=== PATIENT | male | born 1955 | race Caucasian/White ===

== ENCOUNTER 2017-07-09 09:49 | Inpatient (IN) | payer MEDICARE, MEDICAID ==
[2017-07-09] MEDS ORDERED: 0.9 % SODIUM CHLORIDE 10 ML DISP.SYRIN. IV (10:15)
[2017-07-09] MEDS: IV NORMAL SALINE 1000ML BAG 1,000 ML IV ×3 (10:16→23:23)
[2017-07-09] MEDS: ASPIRIN CHEWABLE 81 MG TABLET. PO (10:18)
[2017-07-09 10:32] LABS: POC GLUCOSE 114 mg/dL (70-99)
[2017-07-09 10:49] LABS: ADD MAN DIFF? NO
[2017-07-09 11:05] LABS: BASO # 0.1 x10^3/uL (0.0-0.2); BASO % 1 % (0-3); EOS # 0.4 x10^3/uL (0.0-0.7); EOS % 5 % (0-3); HEMATOCRIT 48.2 % (39.0-53.0); HEMOGLOBIN 17.1 g/dL (13.0-17.5); LYMPH # 3.1 x10^3/uL (1.0-4.8); LYMPH % 37 % (24-48); MEAN CORPUSCULAR HEMOGLOBIN 35 pg (25-35); MEAN CORPUSCULAR HGB CONC 35 g/dL (31-37); MEAN CORPUSCULAR VOLUME 98 fL (79-100); MONO # 0.8 x10^3/uL (0.0-1.1); MONO % 10 % (0-9); NEUT % 48 % (31-73); PLATELET COUNT 271 x10^3/uL (140-400); RED BLOOD COUNT 4.91 x10^6/uL (4.30-5.70); RED CELL DISTRIBUTION WIDTH 12.6 % (11.5-14.5); WHITE BLOOD COUNT 8.4 x10^3/uL (4.0-11.0)
[2017-07-09 11:06] LABS: ANION GAP 10 (6-14); BLOOD UREA NITROGEN 16 mg/dL (8-26); CALCIUM 8.8 mg/dL (8.5-10.1); CARBON DIOXIDE 27 mmol/L (21-32); CHLORIDE 104 mmol/L (98-107); CREATININE 1.4 mg/dL (0.7-1.3); GFR 51.5; GLUCOSE 129 mg/dL (70-99); POTASSIUM 4.3 mmol/L (3.5-5.1); SODIUM 141 mmol/L (136-145)
[2017-07-09 11:12] LABS: D-DIMER 0.38 ug/mlFEU (0.00-0.50)
[2017-07-09 11:14] LABS: ETHANOL 11 mg/dL (0-10)
[2017-07-09 11:14] LABS: ALBUMIN 3.6 g/dL (3.4-5.0); ALK PHOS 75 U/L (46-116); ALT (SGPT) 207 U/L (16-63); AST (SGOT) 86 U/L (15-37); DIRECT BILIRUBIN 0.1 mg/dL (0.0-0.2); LIPASE 136 U/L (73-393); MAGNESIUM 2.3 mg/dL (1.8-2.4); TOTAL BILIRUBIN 0.3 mg/dL (0.2-1.0); TOTAL PROTEIN 7.8 g/dL (6.4-8.2)
[2017-07-09 11:19] LABS: TROPONINI < 0.017 ng/mL (0.000-0.055)
[2017-07-09 11:22] LABS: NT-PRO BNP 167 pg/mL (0-124)
[2017-07-09 11:22] LABS: CKMB MASS 1.2 ng/mL (0.0-3.6); CREATINE KINASE 53 U/L (39-308)
[2017-07-09 11:23] LABS: THYROID STIM HORMONE (TSH) 8.633 uIU/mL (0.358-3.74)
[2017-07-09 13:21] LABS: BILIRUBIN,URINE SMALL (NEG); CLARITY,URINE CLOUDY; COLOR,URINE AMBER; GLUCOSE,URINE NEGATIVE (NEG); NITRITE,URINE NEGATIVE (NEG); PROTEIN,URINE NEGATIVE (NEG-TRACE); UROBILINOGEN,URINE 0.2 mg/dL (0.2 mg/dL)
[2017-07-09 13:25] LABS: BARBITURATES NEG (NEG); BENZODIAZEPINES NEG (NEG); CANNABINOIDS POS (NEG); COCAINE NEG (NEG); METHADONE NEG (NEG); OPIATES NEG (NEG); PHENCYCLIDINE NEG (NEG)
[2017-07-09 13:26] LABS: AMPHETAMINE/METHAMPHETAMINE NEG (NEG); ETHANOL, URINE NEG (NEG)
[2017-07-09 13:27] LABS: BACTERIA,URINE FEW /HPF (0-FEW); HYALINE CASTS, URINE MANY /HPF; RBC,URINE 0 /HPF (0-2); SQUAMOUS EPITHELIAL CELL,UR OCC /LPF
[2017-07-09] MEDS ORDERED: fentaNYL PF VIAL 100 MCG/2 ML VIAL IV (14:30)
[2017-07-09] MEDS ORDERED: ONDANSETRON PF 4 MG/2 ML VIAL. IV (14:30)
[2017-07-09 18:53] LABS: TROPONINI < 0.017 ng/mL (0.000-0.055)
[2017-07-09 20:35] LABS: TROPONINI < 0.017 ng/mL (0.000-0.055)
[2017-07-10] MEDS: IV NORMAL SALINE 1000ML BAG 1,000 ML IV (06:48)
[2017-07-10] MEDS ORDERED: METOPROLOL SUCC 24HR ER 50 MG TAB.ER.24H. PO (10:00)
[2017-07-10 10:01] LABS: FREE T4 1.07 ng/dL (0.76-1.46)
[2017-07-10] MEDS: CLOPIDOGREL BISULFATE 75 MG TABLET PO (10:30)
[2017-07-10] MEDS: ASPIRIN ENTERIC COATED 81 MG TABLET.DR. PO (10:30)
[2017-07-10] MEDS: AMIODARONE HCL 200 MG TABLET. PO (10:30)
[2017-07-10] MEDS: LISINOPRIL 5 MG TABLET. PO (10:30)
[2017-07-10] MEDS ORDERED: SIMVASTATIN 10 MG TABLET PO (21:00)
== END 2017-07-10 18:22 | disposition home or self-care (01) | DRG 641 ==
LOC: ER 09:49 → 6 SOUTH 15:33
PROVIDERS: Internal Medicine Cardiovascular Disease
DX: E86.0 Dehydration (principal); I95.9 Hypotension, unspecified; E78.5 Hyperlipidemia, unspecified; F10.10 Alcohol abuse, uncomplicated; Y90.0 Blood alcohol level of less than 20 mg/100 ml; F17.210 Nicotine dependence, cigarettes, uncomplicated; I25.10 Atherosclerotic heart disease of native coronary artery without angina pectoris; R73.9 Hyperglycemia, unspecified; I73.9 Peripheral vascular disease, unspecified; Z79.82 Long term (current) use of aspirin; Z82.49 Family history of ischemic heart disease and other diseases of the circulatory system; Z95.5 Presence of coronary angioplasty implant and graft; Z79.899 Other long term (current) drug therapy; Z87.81 Personal history of (healed) traumatic fracture
CPT/HCPCS: 36415; 70450; 71045; 80048; 80076; 80307; 81001; 82553; 82962; 83036; 83690; 83735; 83880; 84439; 84443; 84484; 85025; 85379; 87086; 93005; 93306; 96360; 99285; 99285-25; G0480; J7030

== ENCOUNTER → 2018-04-01 | Day surgery (SDC) | payer MEDICARE, MEDICAID ==
[~2018-04-01] MED LIST: AMIO200T4 PO; ASPI-482 PO; ASPI325T8 PO; CLOP75TA PO; HYDROmorphone 2 MG/ML VIAL IV PRN; IV RINGERS,LACTATED 1000ML 1,000 ML IV SCH; LIDOCAINE 1% PF 2 ML VIAL. ID PRN; LISI-338 PO; METO-269 PO; METO50TA6 PO; MORPHINE SULFATE 2 MG/ML VIAL. IV PRN; ONDANSETRON PF 4 MG/2 ML VIAL. IV PRN; PROCHLORPERAZINE 10 MG/2 ML VIAL. IV PRN; PROPOFOL 40 ML IV ONE; SIMV10TA3 PO; fentaNYL PF VIAL 100 MCG/2 ML VIAL IV PRN
[2018-04-01 13:09] VITALS: BP 146/85
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
== END | disposition home or self-care (01) ==
LOC: ENDOS 11:20
PROVIDERS: ATTEND Internal Medicine Gastroenterology
DX: Z12.11 Encounter for screening for malignant neoplasm of colon (principal); K64.0 First degree hemorrhoids; I10 Essential (primary) hypertension; E78.5 Hyperlipidemia, unspecified; Z98.890 Other specified postprocedural states; Z95.5 Presence of coronary angioplasty implant and graft; Z79.82 Long term (current) use of aspirin; Z79.899 Other long term (current) drug therapy; F17.210 Nicotine dependence, cigarettes, uncomplicated; Z88.8 Allergy status to other drugs, medicaments and biological substances
CPT/HCPCS: G0121; J2704; 45378

== ENCOUNTER 2018-11-15 07:49 | Observation (INO) | payer MEDICARE ==
[~2018-11-15] VITALS: Ht 175.3 cm; Wt 77.2 kg
[2018-11-15] VITALS (23 sets, daily range): BP systolic 128–207; BP diastolic 75–112
[~2018-11-15 07:49] MED LIST changes: -HYDROmorphone 2 MG/ML VIAL IV PRN; -IV RINGERS,LACTATED 1000ML 1,000 ML IV SCH; -LIDOCAINE 1% PF 2 ML VIAL. ID PRN; -MORPHINE SULFATE 2 MG/ML VIAL. IV PRN; -ONDANSETRON PF 4 MG/2 ML VIAL. IV PRN; -PROCHLORPERAZINE 10 MG/2 ML VIAL. IV PRN; -PROPOFOL 40 ML IV ONE; -fentaNYL PF VIAL 100 MCG/2 ML VIAL IV PRN
[2018-11-15 08:24] LABS: HEMATOCRIT 46.9 % (39.0-53.0); RED BLOOD COUNT 4.59 x10^6/uL (4.30-5.70); WHITE BLOOD COUNT 7.3 x10^3/uL (4.0-11.0)
[2018-11-15 08:37] LABS: CALCIUM 8.7 mg/dL (8.5-10.1); CREATININE 1.1 mg/dL (0.7-1.3); GFR 67.8; POTASSIUM 4.7 mmol/L (3.5-5.1)
[2018-11-15] MEDS ORDERED: DICL75TA PO ×2 (08:37→15:58)
[2018-11-15] MEDS ORDERED: SIMV20TA3 PO (08:37)
[2018-11-15 08:42] LABS: PROTHROMBIN TIME PATIENT 12.6 SEC (11.7-14.0)
[2018-11-15] MEDS ORDERED: LIDOCAINE 1% Multi-Dose 20 ML VIAL. ONE ×2 (08:58→10:00)
[2018-11-15] MEDS ORDERED: IODIXANOL 320 MG/ML 100 ML VIAL. ONE (08:58)
--- NOTE | 2018-11-15 09:26 | PDOC ---
MODERATE SEDATION ASSESSMENT RISKS/ALTERNATIVES Risks/Alternatives Risks and alternatives of this type of sedation and procedure discussed with: RISK/ALTERNATIVES: Patient H & P ON CHART H & P H & P on chart and reviewed for co-morbid conditions and appropriate labs. H&P ON CHART: Yes STATUS PREG STATUS ASSESSED: N/A MEDS/ALLERGIES REVIEWED Meds/Allergies Reviewed Medications and Allergies including time and route of recently administered narcotics and sedatives. MEDS/ALLERGIES REVIEWED: Yes ASA RATING ASA RATING: II AIRWAY ASSESSMENT Airway Assessment Airway patency, oral function limitations, presence of caps, crowns, dentures, partials, and ability to extend neck assessed. AIRWAY ASSESSMENT: Yes MALLAMPATI SCORE MALLAMPATI SCORE: II PRE-SEDATION ASSESSMENT PRE-SEDATION ASSESSMENT: Yes REENA LÓPEZ MD Nov 15, 2018 09:26
[2018-11-15] MEDS ORDERED: fentaNYL PF VIAL 100 MCG/2 ML VIAL ONE ×3 (09:33→15:31)
[2018-11-15] MEDS ORDERED: MIDAZOLAM HCL/PF 5 MG/5 ML VIAL. ONE (09:33)
[2018-11-15] MEDS ORDERED: MIDAZOLAM HCL/PF 5 MG/5 ML VIAL. IV ONE (10:00)
[2018-11-15] MEDS ORDERED: HEPARIN for IV BOLUS 10,000 UNIT/10 ML VIAL. ONE (10:00)
[2018-11-15] MEDS ORDERED: fentaNYL PF VIAL 100 MCG/2 ML VIAL IV ONE ×2 (10:00→15:30)
[2018-11-15] MEDS ORDERED: LIDOCAINE 2% 20 ML VIAL. IJ ONE (10:00)
[2018-11-15] MEDS ORDERED: IODIXANOL 320 MG/ML 100 ML VIAL. IART ONE (10:00)
[2018-11-15] MEDS ORDERED: MIDAZOLAM HCL/PF 2 MG/2 ML VIAL. ONE (10:03)
[2018-11-15] MEDS ORDERED: HEPARIN for IV BOLUS 10,000 UNIT/10 ML VIAL. IV ONE (10:15)
[2018-11-15] MEDS ORDERED: MIDAZOLAM HCL/PF 2 MG/2 ML VIAL. IV ONE (10:15)
[2018-11-15] MEDS ORDERED: NITROGLYCERIN 200 MCG/2 ML SYRINGE FOR CATH/VASC LAB. IART ONE (10:45)
[2018-11-15] MEDS ORDERED: NITROGLYCERIN 200 MCG/2 ML SYRINGE FOR CATH/VASC LAB. ONE (10:45)
[2018-11-15] MEDS ORDERED: LIDOCAINE 1% Multi-Dose 20 ML VIAL. INJ ONE (11:15)
[2018-11-15] MEDS ORDERED: NITROGLYCERIN SUBLINGUAL 0.4 MG BOTTLE OF 25. SL PRN (11:30)
--- NOTE | 2018-11-15 11:41 | CARD ---
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 Aortogram with bilateral lower extremity runoff 2. Successful kissing balloon angioplasty to bilateral common iliac arteries Moderate sedation: 104 mins Fluoro time: 14.4 mins Dose: 204.9 GYCM2 Contrast:125 ml INDICATION FOR PROCEDURE The indication(s) include : Peripheral vascular disease with claudication. PROCEDURE NARRATIVE After explaining the risks, benefits and alternative options, informed consent was obtained from mali ent. Patient was brought to the cardiac Instrument Room Technician and both his groins were prepped and draped in the u sual fashion. 20 mL of 2% lidocaine was infiltrated into the skin and subcutaneous tissues of the rig ht groin for local anesthesia. Arterial access was obtained in the right common femoral artery and 5 Sammarinese sheath was inserted. A 5 Sammarinese pigtail catheter was used to perform aortogram with bilateral lower extremity runoff. The following findings were noted. FINDINGS 1. No significant stenosis involving the distal descending aorta 2. Patent previously placed stent in the right common iliac artery. 100% chronic total occlusion wit hin the stent in the proximal to midsegment of the left common iliac artery. There is distal reconsti tution via collaterals. 3. No significant stenosis involving right external iliac artery. Mild to moderate diffuse disease involving left external iliac artery without any significant stenosis. 4. No significant stenosis involving bilateral common femoral and superficial femoral arteries. 5. No significant stenosis involving bilateral popliteal arteries. 6. There is three vessel runoff below the knee bilaterally. INTERVENTION The sheath in the right groin was exchanged to a 6 Sammarinese 23 cm bright tip sheath. Arterial access wa s obtained in the left common femoral artery and a 6 Sammarinese 23 cm bright tip sheath was inserted. Wit h the help of backup support from 4 Sammarinese angled glide catheter, the chronic total occlusion involvi ng the left common femoral artery was crossed with a 0.035 inch angled glide wire. This lesion was fi rst dilated with a 5.0 x 60 mm Toscano Rice balloon. Subsequently, a 7.0 x 40 mm Toscano Rice ballo on was placed in the right common iliac artery within the previously placed stent, 7.0 x 80 mm Toscano Rice balloon placed within the in-stent lesion in the left common iliac artery and simultaneous ki ssing balloon angioplasty was performed in bilateral common iliac arteries. Follow-up angiography jevon wed resolution of the lesion with good distal flow. Patient tolerated the procedure well. Hemostasis in both the groins was achieved using mynx closure devices. There were no immediate complications. Conclusion 1. 100% chronic total occlusion within the stent in the left common iliac artery 2. Successful kissing balloon angioplasty to bilateral common iliac arteries. Recommendations 1. Aspirin 81 mg daily 2. Plavix 75 mg daily 3. Vascular risk factor modification including smoking cessation Signed by : Reean López, Electronically Approved : 11/15/2018 11:41:07
[2018-11-15] MEDS ORDERED: MORPHINE SULFATE 2 MG/ML VIAL. IV ONE ×2 (12:00→13:30)
--- NOTE | 2018-11-15 12:00 | NUR ---
Patient complains of lower abdominal pain and right groin site tenderness with firmness. Dr Vieira notified and assessed patient, keep monitoring patient and pain medication order received.
[2018-11-15] MEDS ORDERED: MORPHINE SULFATE 4 MG/ML VIAL. ONE ×2 (12:01→13:40)
--- NOTE | 2018-11-15 13:15 | NUR ---
Patient continues to have right groin pain with firmness and lower abdomen pain. instructional technology facilitator at bedside holding pressure to right groin. Dr. Zafar notified due to Dr. Vieira unavailable. Received order for right lower extremity arterial doppler. Will await arterial doppler results.
--- NOTE | 2018-11-15 13:30 | NUR ---
Dr. Vieira called, no acute findings according to arterial doppler of right lower extremity. Received order for pain medication and admit patient overnight for observations.
--- NOTE | 2018-11-15 14:39 | RAD ---
MR#: [id number] Date of Study: 11/15/2018 Ordering Physician: ROBERTO DAS, Referring Physician: REENA LÓPEZ, Tech: Conor Reyna MBA, RDMS, RVT, RDCS, RTR APPROVED REPORT Patient Location: OUT-PATIENT Indications s/p femoral runoff/rt groin pain/swelling Findings Grayscale images of the right groin did not demonstrate any significant fluid collection or hematoma. There is color Doppler flow noted in the common femoral artery and vein. No obvious pseudoaneurysm or AV fistula is noted. There are biphasic waveforms in the common femoral artery and superficial femoral artery. Critical Notification Critical Value: No <Conclusion> 1. No right groin pseudoaneurysm, AV fistula or significant hematoma noted. Biphasic waveforms in the BRICK HANDLER and SFA. Signed by : Roberto Das, Electronically Approved : 11/15/2018 14:38:40
--- NOTE | 2018-11-15 15:26 | NUR ---
Left groin site dressing saturated, new Vpad and dressing placed to left groin and Dr. Zafar at bedside assessing right groin and pulses. Dr. Zafar able to doppler right dorsalis pedis and post tib in different location than before procedure. Pain medication order received. Report called to KATHERIN Kaur on .
[2018-11-15] MEDS ORDERED: METO50TA6 PO ×2 (15:58→20:24)
[2018-11-15] MEDS ORDERED: DICLOFENAC SODIUM 25 MG TABLET.DR PO PRN (18:00)
[2018-11-15] MEDS: IV 1/2 NORMAL SALINE 1,000 ML IV SCH ×2 (18:09→19:02)
[2018-11-15] MEDS: oxyCODONE/APAP 5/325 1 TAB TABLET PO PRN ×2 (18:09→22:29)
[2018-11-15] MEDS: METOPROLOL TART IMMED RELEASE 50 MG TABLET. PO SCH ×2 (20:20→20:42)
[2018-11-15] MEDS ORDERED: SIMVASTATIN 20 MG TABLET PO SCH (21:00)
[2018-11-15] MEDS: MORPHINE SULFATE 4 MG/ML VIAL. IV PRN (22:32)
[2018-11-16] MEDS: MORPHINE SULFATE 4 MG/ML VIAL. IV PRN ×2 (02:41→04:52)
[2018-11-16] MEDS: oxyCODONE/APAP 5/325 1 TAB TABLET PO PRN (02:41)
[2018-11-16] MEDS: IV 1/2 NORMAL SALINE 1,000 ML IV SCH (02:45)
[2018-11-16 03:00] VITALS: BP 138/69
[2018-11-16 07:00] VITALS: BP 140/76
--- NOTE | 2018-11-16 08:52 | PDOC3 ---
Discharge Summary Visit Information Date of Admission: Nov 15, 2018 Date of Discharge: Nov 16, 2018 Admitting Diagnosis: Severe PAD with claudication, HTN Final Diagnosis Severe PAD with claudication. HTN. S/P BARREL STRAIGHTENER to bilateral common iliac artery Brief Hospital Course Allergies Allergies Coded Allergies Type Severity Reaction Last Updated Verified I S O L A T I O N *CONTACT* Allergy Unknown 04/01/18 Yes No Known Medication Allergies Allergy Unknown 04/01/18 Yes Vital Signs Vital Signs Date Time Temp Pulse Resp B/P (MAP) Pulse Ox O2 Delivery O2 Flow Rate FiO2 11/16/18 07:00 98.0 74 20 140/76 (97) 96 Room Air 98.0 11/15/18 18:09 2.0 Lab Results Laboratory Tests Test 11/15/18 08:15 White Blood Count 7.3 x10^3/uL (4.0-11.0) Red Blood Count 4.59 x10^6/uL (4.30-5.70) Hemoglobin 16.0 g/dL (13.0-17.5) Hematocrit 46.9 % (39.0-53.0) Mean Corpuscular Volume 102 fL (79-100) Mean Corpuscular Hemoglobin 35 pg (25-35) Mean Corpuscular Hemoglobin Concent 34 g/dL (31-37) Red Cell Distribution Width 13.0 % (11.5-14.5) Platelet Count 231 x10^3/uL (140-400) Prothrombin Time 12.6 SEC (11.7-14.0) Prothromb Time International Ratio 1.0 (0.8-1.1) Sodium Level 141 mmol/L (136-145) Potassium Level 4.7 mmol/L (3.5-5.1) Chloride Level 105 mmol/L (98-107) Carbon Dioxide Level 29 mmol/L (21-32) Anion Gap 7 (6-14) Blood Urea Nitrogen 16 mg/dL (8-26) Creatinine 1.1 mg/dL (0.7-1.3) Estimated GFR (Cockcroft-Gault) 67.8 Glucose Level 98 mg/dL (70-99) Calcium Level 8.7 mg/dL (8.5-10.1) Brief Hospital Course Mr. Alexandre is a 63 old male admitted for planned femoral runoff. He is known for CAD which is clinically stable but also known for LE PAD with stents in the past and lately has been noted with claudication symptoms. Femoral runoff revealed 100% occlusion within the stent in the left common iliac artery and had a successful kissing balloon angioplasty to bilateral common iliac arteries. Initially he was noted with right groin tenderness with some hematoma so US was done but no acute complications were noted. Right groin tender to touch but no significant pain and with small hematoma and no significant bruising. Neurovascular status to bilateral LE intact and pt was able to ambulate without difficulty. He has been provided with #20 Percocet 5/325 1 tab PO Q4 PRN for severe pain and post procedural instructions were discussed. VSS. Continue with home ASA and plavix and continue home regimen.. Smoking cessation emphasized. Follow up as scheduled. Discharge Information Condition at Discharge: Stable Follow Up: Weeks (4) Disposition/Orders: D/C to Home Scheduled Amiodarone Hcl (Amiodarone Hcl) 200 Mg Tablet, 1 TAB PO DAILY, #90 Ref 1 (Reported) Entered as Reported by: SUSIE RAMSEY on 06/22/14816 Last Taken: Unknown Dose on 11/15/18 Last Action: Continued on 11/15/181750 by CHANTAL HUDSON Aspirin (Aspir 81) 81 Mg Tablet.dr, 81 MG PO DAILY, (Reported) Entered as Reported by: BARRY LAWSON on 07/09/171712 Last Taken: Unknown Dose on 11/15/18 Last Action: Continued on 11/15/181750 by CHANTAL HUDSON Clopidogrel Bisulfate (Clopidogrel) 75 Mg Tablet, 1 TAB PO DAILY, #90 Ref 1 (Reported) Entered as Reported by: SUSIE RAMSEY on 06/22/14816 Last Taken: Unknown Dose on 11/15/18 Last Action: Continued on 11/15/181750 by CHANTAL HUDSON Lisinopril (Lisinopril) 5 Mg Tablet, 1 TAB PO DAILY, #30 Ref 5 (Reported) Entered as Reported by: SUSIE RAMSEY on 06/22/14816 Last Taken: Unknown Dose on 11/15/18 Last Action: Converted on 11/15/181750 by CHANTAL HUDSON Metoprolol Tartrate (Metoprolol Tartrate) 50 Mg Tablet, 1 TAB PO DAILY, #60 Ref 5 (Reported) Entered as Reported by: Anglea Heaton on 11/15/182023 Last Action: New Order on 11/15/182023 by Angela Heaton Simvastatin (Simvastatin) 20 Mg Tablet, 1 TAB PO QHS for Cholesterol, #30 Ref 5 (Reported) Entered as Reported by: EUGENIO AGUSTIN on 11/15/18 0837 Last Taken: Unknown Dose on 11/14/18 Last Action: Converted on 11/15/181750 by CHANTAL HUDSON Scheduled PRN Diclofenac Sodium (Diclofenac Sodium) 75 Mg Tablet.dr, 1 TAB PO PRN BID PRN for back pain , #60 Ref 1 (Reported) Entered as Reported by: CHANTAL HUDSON on 11/15/181557 Last Taken: Unknown Dose on Unknown Date & Time Last Action: Converted on 11/15/181750 by CHANTAL HUDSON Oxycodone/Apap 5-325 (Percocet 5-325 Mg Tablet ) 1 Each Tablet, 1 TAB PO PRN Q6HRS PRN for SEVERE PAIN for 28 Days, #20 Prescribed by: RONALDO JAMES on 11/16/18 0854 Discontinued Medications Metoprolol Tartrate (Metoprolol Tartrate) 50 Mg Tablet, 1 TAB PO BID for HTN, #60 Ref 5 (Reported) Discontinued Reason: only daily Entered as Reported by: CHANTAL HUDSON on 11/15/181557 Last Taken: Unknown Dose on 11/15/18 Last Action: Discontinued on 11/15/182022 by Angela Heaton Patient Instructions Patient Instructions GENERAL INSTRUCTIONS: 1. Your dressing should be removed prior to leaving the hospital. 2. It is OK to shower the day after your procedure. 3. If you received stents, be sure to carry your stent information card with you in your wallet/purse at all times. 4. Call the office immediately at [phone] if you notice any fever or if there is redness, worsening tenderness/pain, increased bruising, or drainage from the puncture site. 5. Should you have bleeding from the site, lie down immediately & put pressure on the site. The pressure should be hard enough to stop the bleeding. Have the nearest person call 911. DO NOT try to drive to the ER with active bleeding. 6. If you notice a change in color, coolness to touch, or loss of feeling in the affected extremity, come to the emergency room. Please have someone drive you or call 911 if no one is available. DO NOT drive yourself. 7. If you normally take glucophage (metformin), please do not take this medicine for 48 hours following your procedure. 8. DO NOT STOP TAKING YOUR PLAVIX OR ASPIRIN UNLESS IT IS CLEARED BY A RESOURCE DEVELOPMENT DIRECTOR OF YOUR SECTION CUTTER AT OUR OFFICE. 9. QUIT SMOKING: the [place] [employer], [place] [employer], & [place] [employer] have cessation resources available on their websites 10. Please have someone available to drive you home from the hospital as you may be limited by sedation medications given during the procedure. Femoral (Groin) access: 1. Do no lifting, pushing, pulling, bending, stooping, or recurrent stair climbing for 3 days following your procedure. 2. Once past the first 3 days, do not do any HEAVY exertion or lifting for one week following the procedure. No gym workouts, running, lifting greater than a gallon of milk, etc 3. Do not submerge in bath or pool for one week. OK to drive 3 days following your procedure, but if going long distance, do not go alone & take hourly breaks to get out of car and walk around. Call the office at [phone] for any questions or concerns. RONALDO JAMES APRN Nov 16, 2018 08:52
[2018-11-16] MEDS ORDERED: OXYC1TAB15 PO (08:54)
[2018-11-16] MEDS ORDERED: CLOPIDOGREL BISULFATE 75 MG TABLET PO SCH (09:00)
[2018-11-16] MEDS ORDERED: AMIODARONE HCL 200 MG TABLET. PO SCH (09:00)
[2018-11-16] MEDS ORDERED: ASPIRIN ENTERIC COATED 81 MG TABLET.DR. PO SCH (09:00)
[2018-11-16] MEDS ORDERED: LISINOPRIL 5 MG TABLET. PO SCH (09:00)
--- NOTE | 2018-11-16 09:12 | NUR ---
IP: Pt has a hx of + mrsa screen on 01/2015. Pt to be in contact precautions until there are 2 negative screens 7 days apart.
[2018-11-16 09:13] VITALS: BP 140/76
[2018-11-16] MEDS: METOPROLOL TART IMMED RELEASE 50 MG TABLET. PO SCH (09:13)
--- NOTE | 2018-11-16 10:30 | NUR ---
Discharge instructions reviewed with patient. Patient verbalizes understanding, prescriptions and follow ups given. Patient being picked up by family member.
== END 2018-11-16 10:35 | disposition home or self-care (01) ==
LOC: CCL 07:49 → 2 NORTH 15:01
PROVIDERS: ADMIT Internal Medicine Cardiovascular Disease; ATTEND Internal Medicine Cardiovascular Disease
DX: I73.9 Peripheral vascular disease, unspecified (principal); I10 Essential (primary) hypertension; I25.10 Atherosclerotic heart disease of native coronary artery without angina pectoris; E78.00 Pure hypercholesterolemia, unspecified; I49.9 Cardiac arrhythmia, unspecified; Z98.890 Other specified postprocedural states; Z72.0 Tobacco use; Z95.820 Peripheral vascular angioplasty status with implants and grafts
CPT/HCPCS: 36415; 37220; 75630; 80048; 85027; 85610; 93926; 96374; 96375; 96376; C1713; C1769; C1885; C1892; G0269; G0378; G0379; J1644; J2250; J2270; J3010; J3490; Q9967; 99152; 99153

== ENCOUNTER → 2020-01-05 | Outpatient (CLI) | payer MEDICARE ==
[~2020-01-05] MED LIST changes: +DICL75TA PO; +OXYC1TAB15 PO; +SIMV10TA15 PO; -SIMV10TA3 PO; +SIMV20TA18 PO
--- NOTE | 2020-01-06 06:28 | CARD ---
MR#: [id number] Date of Study: 01/05/2020 Ordering Physician: REENA LÓPEZ, Referring Physician: REENA LÓPEZ, Tech: Tyra Pérez APPROVED REPORT EXAM: Two-dimensional and M-mode echocardiogram with Doppler and color Doppler. Other Information Quality : AverageHR: 64bpm INDICATION Cardiac Disease: CAD RISK FACTORS Hypertension Hyperlipidemia Smoking 2D DIMENSIONS RVDd2.5 (2.9-3.5cm)Left Atrium(2D)3.3 (1.6-4.0cm) IVSd0.8 (0.7-1.1cm)Aortic Root(2D)3.4 (2.0-3.7cm) LVDd5.3 (3.9-5.9cm)LVOT Diameter2.2 (1.8-2.4cm) PWd1.0 (0.7-1.1cm)LVDs3.3 (2.5-4.0cm) FS (%) 38.2 %SV90.9 ml LVEF(%)67.9 (>50%) Aortic Valve AoV Peak Javed.132.2cm/sAoV VTI31.3cm AO Peak GR.7.0mmHgLVOT Peak Javed.73.7cm/s LVOT VTI 17.92cmAO Mean GR.4mmHg SOURAV (VMAX)1.41uf8EYH (VTI)2.11cm2 Mitral Valve MV E Ozemwsxq37.6cm/sMV DECEL IBKI088th MV A Diidlfpe48.7cm/sMV E Mean Gr.2mmHg MV JLY83stH/A Ratio1.1 MVA (PHT)3.66cm2 TDI E/Lateral E'9.8E/Medial E'17.0 Pulmonary Valve PV Peak Jlrnyqsn59.1cm/sPV Peak Grad.4mmHg Pulmonary Vein S1 Myqrlykm74.4cm/sD2 Bqeieerw46.0cm/s PVa [id number] LEFT VENTRICLE The left ventricle is normal size. There is normal left ventricular wall thickness. The left ventricu lar systolic function is low normal. EF 50%. The basal to mid inferior wall is mildly hypokinetic. Tr ansmitral Doppler flow pattern is Grade I-abnormal relaxation pattern. RIGHT VENTRICLE The right ventricle is normal size. There is normal right ventricular wall thickness. The right ventr icular systolic function is normal. ATRIA The left atrium size is normal. The right atrium size is normal. The interatrial septum is intact wit h no evidence for an atrial septal defect or patent foramen ovale as noted on 2-D or Doppler imaging. AORTIC VALVE The aortic valve is calcified but opens well. Doppler and Color Flow revealed no significant aortic r egurgitation. There is no significant aortic valvular stenosis. Calculated aortic valve area is 2.07 cm2 with maximum pressure gradient of 7 mmHg and mean pressure gradient of 4 mmHg. MITRAL VALVE The mitral valve is normal in structure and function. There is no evidence of mitral valve prolapse. There is no mitral valve stenosis. Doppler and Color Flow revealed no mitral valve regurgitation note d. TRICUSPID VALVE The tricuspid valve is normal in structure and function. Doppler and Color Flow revealed no tricuspid valve regurgitation noted. There is no tricuspid valve stenosis. PULMONIC VALVE The pulmonic valve is not well visualized. Doppler and Color Flow revealed no pulmonic valvular regur gitation. There is no pulmonic valvular stenosis. GREAT VESSELS The aortic root is normal in size. The IVC is normal in size and collapses >50% with inspiration. PERICARDIAL EFFUSION There is no evidence of significant pericardial effusion. Critical Notification Critical Value: No <Conclusion> The left ventricular systolic function is low normal. EF 50%. The basal to mid inferior wall is mildly hypokinetic. Signed by : Eusebio Zafar, Electronically Approved : 01/06/2020 06:28:01
== END | disposition home or self-care (01) ==
LOC: ECHO 08:48
PROVIDERS: ATTEND Internal Medicine Cardiovascular Disease
DX: I35.1 Nonrheumatic aortic (valve) insufficiency (principal); I25.10 Atherosclerotic heart disease of native coronary artery without angina pectoris
CPT/HCPCS: 93306

== ENCOUNTER → 2020-07-02 | Outpatient (CLI) | payer MEDICARE ==
[~2020-07-02] MED LIST changes: -AMIO200T4 PO; +AMIO200T6 PO; -LISI-338 PO; +LISI-517 PO
--- NOTE | 2020-07-02 13:08 | RAD ---
MR#: [id number] Date of Study: 07/02/2020 Ordering Physician: REENA LÓPEZ, Referring Physician: REENA LÓPEZ, Tech: Tyra Lanza, JACKI, RVT, RTR APPROVED REPORT Patient Location: OUT-PATIENT Indications PAD Risk Factors History of Lower Extremity PAD: Bilaterally VELOCITY AND DOPPLER WAVEFORM ANALYSIS RIGHT cm/secWaveformSeverity LEFT cm/secWaveform Severity pCFA 167.0pCFA 170.0 Prof Fem Art. 193.2Prof Fem Art. 75.2 Fem Art Prox. 122.3Fem Art Prox. 94.0 Fem Art Mid. 142.3Fem Art Mid. 119.0 Fem Art Dist. 123.8Fem Art Dist. 103.3 Pop Art(Fossa) 44.4Pop Art(AK) 70.1 BRANCH ASSOCIATE TELLER Prox. 46.3PTA Prox. 53.3 BRANCH ASSOCIATE TELLER Dist. 75.0PTA Dist. 13.2 Per Art Prox. 68.5Per Art Prox. 45.2 LULA Prox. 64.3ATA Prox. 62.8 DPA 51DPA 62 Findings Grayscale images of the bilateral lower extremity arterial vessels demonstrate moderate diffuse plaqu e. On the right side there are mildly elevated velocities in the above-knee vessels but no focal stenosi s identified. Below the knee there are mostly biphasic waveforms and there is three-vessel runoff no sara without any critical stenosis. On the left side again mild disease of overall less than 50% stenosis is noted in the above-knee vess els. Below the knee there is likely a distal posterior tibial artery subtotal occlusion with two-ves sharmin runoff in a monophasic wave pattern. Critical Notification Critical Value: No <Conclusion> 1. No significant above-knee disease bilaterally 2. Probable left distal posterior tibial artery occlusion with moderate diffuse disease involving th e below-knee vessels on the left side. No significant below-knee disease on the right side. Signed by : Eusebio Zafar, Electronically Approved : 07/02/2020 13:08:03
== END ==
LOC: US 12:01
PROVIDERS: ATTEND Internal Medicine Cardiovascular Disease
DX: I70.292 Other atherosclerosis of native arteries of extremities, left leg (principal); I10 Essential (primary) hypertension; Z95.5 Presence of coronary angioplasty implant and graft
CPT/HCPCS: 93925

== ENCOUNTER → 2021-01-03 | Outpatient (CLI) | payer MEDICARE ==
[2021-01-03] MEDS: REGADENOSON 0.4 MG/5 ML DISP.SYRIN. IV ONE (10:37)
--- NOTE | 2021-01-03 15:03 | RAD ---
MR#: [id number] Date of Study: 01/03/2021 Ordering Physician: REENA LÓPEZ, Referring Physician: MUNA PATTERSON Tech: SHARA Manning, ARRT (R) (N) APPROVED REPORT Test Type: Pharmacological Stress Nurse/Tech: KATHERIN FLOWERS Test Indications: CAD Cardiac History: HTN, SEE CAD- SEE EMR Medications: SEE EMR Medical History: SEE EMR Resting ECG: SB/SR Resting Heart Rate: 74 bpm Resting Blood Pressure: 168/65mmHg Pretest Chest Pain: No chest pain Nurse/Tech Notes S1,S2, LUNGS CTA, VSS. DEMIES CHEST PAIN OR SHORTNESS OF AIR. Consent: The procedure was explained to the patient in lay terms. Informed consent was witnessed. Jeovany eout was entered into [employer]. History and Stress Test performed by RT Wes (Elida) (N) Pharm. Details Pharmacologic stress testing was performed using 0.4mg per 5ml of regadenoson given intravenously ove r 7-10 seconds. Stress Symptoms PT DENIED ANY SYMPTOMS DURING TESTING. VSS. NO COMPAINTS. POST EXERCISE Reason for Termination: Infusion complete Max HR: 87 bpm Max Blood Pressure: 149/56mmHg Blood Pressure response to exercise: Normal blood pressure response during stress. Heart Rate response to exercise: WNL Chest Pain: No. Arrhythmia: No. NO SIGNIFICANT CHANGES NOTED FROM BASELINE EKG. ST Change: No. INTERPRETATION Stress EKG Conclusion: Baseline EKG showed sinus rhythm. No ischemic changes at peak stress. No arr hythmias. Imaging Protocol IMAGE PROTOCOL: Rest Tc-99m/stress Tc-99m 1 day Rest: Stress: Viability: Radiopharm.Tc99m OqwjphccvSo19a Sestamibi Dose9.5mCi 30mCi Img Date 01/03/2021 01/03/2021 Inj-Img [id number]. Rest Admin Site:IV - Left AntecubitalAdministrator:RT Wes (Elida)(N) Stress Admin Site: IV - Left AntecubitalAdministrator: Damion Boyer, RT (R)(N) STRESS DATA End Diast. Vol.101.0mlLVEDV index BSA52.0ml End Syst. Vol.44.0mlLVESV index BSA22.0ml Myocardial Jnyd826.0gEject. Gfvjpeav47.0% Stress Scores Regional WT0.00Summed WT14.00 Regional WM0.00Summed WM9.00 LV Perfusion Scintigraphic images showed moderate fixed defect involving the basal to mid inferior wall and extend ing to the basal inferolateral wall consistent with very small amount of reversibility consistent wit h luis-infarct ischemia. Wall Motion Basal inferior wall hypokinesis with ejection fraction calculated at 62%. LV Perf. Quant 17 Seg. SSS10.00 17 Seg. SRS9.00 17 Seg. SDS3.00 Stress Defect Extent (% LAD)0.00Rest Defect Extent (% LAD)0.00Rev. Defect Extent (% LAD)0.00 Stress Defect Extent (% LCX) 31.30Rest Defect Extent (% LCX)5.00Rev. Defect Extent (% LCX)17.50 Stress Defect Extent (% RCA)45.60Rest Defect Extent (% RCA)56.70Rev. Defect Extent (% RCA)4.40 Stress Defect Extent (% ROSEMARIE)18.50Rest Defect Extent (% ROSEMARIE)15.40Rev. Defect Extent (% ROSEMARIE)4.10 Conclusion 1. Regadenoson cardioisotope stress test showed moderate infarct involving the basal to mid inferior wall and extending to the basal inferolateral wall with very small amount of luis-infarct ischemia. 2. Basal inferior wall hypokinesis with ejection fraction calculated at 62%. 3. Low risk for cardiac events. Signed by : Reena López, Electronically Approved : 01/03/2021 15:02:21
--- NOTE | 2021-01-03 18:30 | CARD ---
MR#: [id number] Date of Study: 01/03/2021 Ordering Physician: ROBERTO DAS, Referring Physician: ROBERTO DAS, Tech: Tyra Pérez, [facility] APPROVED REPORT EXAM: Two-dimensional and M-mode echocardiogram with Doppler and color Doppler. Other Information Quality : AverageHR: 97bpm INDICATION Cardiac Disease: CAD RISK FACTORS Hypertension Hyperlipidemia Smoking 2D DIMENSIONS Left Atrium(2D)3.2 (1.6-4.0cm)IVSd1.0 (0.7-1.1cm) Aortic Root(2D)3.5 (2.0-3.7cm)LVDd5.6 (3.9-5.9cm) LVOT Diameter2.1 (1.8-2.4cm)PWd1.0 (0.7-1.1cm) LVDs4.5 (2.5-4.0cm)FS (%) 19.8 % SV62.3 ml Aortic Valve AoV Peak Javed.127.1cm/sAoV VTI30.4cm AO Peak GR.6.5mmHgLVOT Peak Javed.83.4cm/s LVOT VTI 21.81cmAO Mean GR.3mmHg SOURAV (VMAX)1.71sk8KAJ (VTI)2.37cm2 Mitral Valve MV E Qwoehyhu78.9cm/sMV DECEL OALB206jv MV A Gbosgnhe39.9cm/sMV VUT61wq E/A Ratio0.9MVA (PHT)3.34cm2 TDI E/Lateral E'9.1E/Medial E'16.0 Pulmonary Valve PV Peak Uwnbrmbv50.4cm/sPV Peak Grad.3mmHg Pulmonary Vein S1 Feonnxvu07.5cm/sD2 Jabozyjc39.9cm/s PVa dtpejfwl767pfnn LEFT VENTRICLE The left ventricle is normal size. There is normal left ventricular wall thickness. The left ventricu lar systolic function is normal and the ejection fraction is within normal range. The Ejection Fracti on is 50-55%. There is normal LV segmental wall motion. Transmitral Doppler flow pattern is Grade II- pseudonormal filling dynamics. RIGHT VENTRICLE The right ventricle is normal size. There is normal right ventricular wall thickness. The right ventr icular systolic function is normal. ATRIA The left atrium size is normal. The right atrium size is normal. The interatrial septum is intact wit h no evidence for an atrial septal defect or patent foramen ovale as noted on 2-D or Doppler imaging. AORTIC VALVE The aortic valve is calcified but opens well. Doppler and Color Flow revealed trace aortic regurgitat ion. There is no significant aortic valvular stenosis. Calculated aortic valve area is 2.46 cm2 with maximum pressure gradient of 9 mmHg and mean pressure gradient of 4 mmHg. MITRAL VALVE The mitral valve is normal in structure and function. There is no evidence of mitral valve prolapse. There is no mitral valve stenosis. Doppler and Color-flow revealed trace mitral regurgitation. TRICUSPID VALVE The tricuspid valve is normal in structure and function. Doppler and Color Flow revealed no tricuspid valve regurgitation noted. There is no tricuspid valve stenosis. PULMONIC VALVE The pulmonic valve is not well visualized. Doppler and Color Flow revealed no pulmonic valvular regur gitation. GREAT VESSELS The aortic root is normal in size. The IVC is normal in size and collapses >50% with inspiration. PERICARDIAL EFFUSION There is no evidence of significant pericardial effusion. Critical Notification Critical Value: No <Conclusion> The left ventricle is normal size. The left ventricular systolic function is normal and the ejection fraction is within normal range. The Ejection Fraction is 50-55%. There is normal LV segmental wall motion. Doppler and Color Flow revealed trace aortic regurgitation. There is no significant aortic valvular stenosis. Doppler and Color-flow revealed trace mitral regurgitation. Doppler and Color Flow revealed no tricuspid valve regurgitation noted. Signed by : Tito Rose MD Electronically Approved : 01/03/2021 18:30:03
== END ==
LOC: NM 08:39
PROVIDERS: ATTEND Internal Medicine Cardiovascular Disease
DX: I21.19 ST elevation (STEMI) myocardial infarction involving other coronary artery of inferior wall (principal); I25.10 Atherosclerotic heart disease of native coronary artery without angina pectoris
CPT/HCPCS: 78452; 93017; 93306; A9500; J2785

== ENCOUNTER 2021-08-01 07:45 | Inpatient (IN) | payer MEDICARE, MEDICAID ==
[~2021-08-01] VITALS: Ht 175.3 cm; Wt 85.2 kg
[~2021-08-01 07:45] MED LIST changes: +AMIO200T53 PO; -AMIO200T6 PO; -LISI-517 PO; +LISI5TAB15 PO
[2021-08-01 08:10] LABS: BASO # 0.2 x10^3/uL (0.0-0.2); BASO % 2 % (0-3); EOS # 0.6 x10^3/uL (0.0-0.7); EOS % 7 % (0-3); HEMATOCRIT 44.6 % (39.0-53.0); HEMOGLOBIN 15.2 g/dL (13.0-17.5); LYMPH # 2.8 x10^3/uL (1.0-4.8); LYMPH % 32 % (24-48); MEAN CORPUSCULAR HEMOGLOBIN 34 pg (25-35); MEAN CORPUSCULAR HGB CONC 34 g/dL (31-37); MEAN CORPUSCULAR VOLUME 99 fL (79-100); MONO # 0.9 x10^3/uL (0.0-1.1); MONO % 10 % (0-9); NEUT # 4.3 x10^3/uL (1.8-7.7); NEUT % 49 % (31-73); PLATELET COUNT 257 x10^3/uL (140-400); RED BLOOD COUNT 4.52 x10^6/uL (4.30-5.70); RED CELL DISTRIBUTION WIDTH 12.8 % (11.5-14.5); WHITE BLOOD COUNT 8.7 x10^3/uL (4.0-11.0)
--- NOTE | 2021-08-01 08:13 | RAD ---
AP portable chest radiograph 08/01/2021 Clinical History: Chest pain. An AP erect portable digital radiograph of the chest was obtained. Comparison study is dated 07/09/2017. The cardiac silhouette is normal in size. Atherosclerotic calcification of the thoracic aorta is seen . The thoracic aorta is mildly tortuous. Small calcified granuloma seen involving the right lower lob e. No acute pulmonary infiltrate is seen. No pleural effusion or pneumothorax is noted. Degenerative changes are seen involving the thoracic spine and both shoulders. Impression: No acute abnormality is seen. Electronically signed by: Leighton Connolly MD (08/01/2021 8:11 AM) [id number]
--- NOTE | 2021-08-01 08:13 | PHYS DOC ---
Past Medical History Past Medical History: Hypertension Past Surgical History: Other Additional Past Surgical Histo: CARDIAC STENTS,LEFT ARM FRACTURE REPAIR Smoking Status: Current Every Day Smoker Alcohol Use: Heavy Drug Use: None, Marijuana General Adult EDM: Chief Complaint: CHEST PAIN HPI: HPI: Patient is a 66 year old male who present to ER for evaluation of substernal chest pain woke him up this morning. Patient had a history of coronary disease, had stent placement. Patient said he has been having stomach problem, acid reflux off and on for several months. Patient usually take antiacid medication and the pain went away. Patient said he took antiacid medication this morning but did not get better so he came here for evaluation. Patient denies any cough or fever, patient denies any abdominal pain, no nausea vomiting. Review of Systems: Review of Systems: Constitutional: Denies fever or chills. [] Eyes: Denies change in visual acuity. [] HENT: Denies nasal congestion or sore throat. [] Respiratory: Denies cough or shortness of breath. [] Cardiovascular: Positive for chest pain, nausea GI: Denies abdominal pain, nausea, vomiting, bloody stools or diarrhea. [] : Denies dysuria. [] Musculoskeletal: Denies back pain or joint pain. [] Integument: Denies rash. [] Neurologic: Denies headache, focal weakness or sensory changes. [] Endocrine: Denies polyuria or polydipsia. [] Lymphatic: Denies swollen glands. [] Psychiatric: Denies depression or anxiety. [] Heart Score: C/O Chest Pain: Yes HEART Score for Chest Pain: HEART Score for Chest Pain Response (Comments) Value History Moderately Suspicious 1 ECG Nonspecific Repolarizatio 1 Age > 65 2 Risk Factors >3 Risk Factors or Hx CAD 2 Troponin < Normal Limit 0 Total 6 Risk Factors: Risk Factors: DM, Current or recent (<one month) smoker, HTN, HLP, family history of CAD, obesity. Risk Scores: Score 0 - 3: 2.5% MACE over next 6 weeks - Discharge Home Score 4 - 6: 20.3% MACE over next 6 weeks - Admit for Clinical Observation Score 7 - 10: 72.7% MACE over next 6 weeks - Early Invasive Strategies Current Medications: Current Medications Medications (Trade) Dose Ordered Sig/Manav Start Time Stop Time Status Last Admin Dose Admin Famotidine (Pepcid Vial) 20 mg 1X ONCE 08/01/21 08:15 08/01/21 08:16 UNV Multi-Ingredient Mouthwash/Gargle (Gi Cocktail) 20 ml 1X ONCE 08/01/21 08:15 08/01/21 08:16 UNV Allergies: Allergies: Allergies Coded Allergies Type Severity Reaction Last Updated Verified I S O L A T I O N *CONTACT* Allergy Unknown 08/01/21 Yes No Known Medication Allergies Allergy Unknown 08/01/21 Yes Physical Exam: PE: Constitutional: Well developed, well nourished, no acute distress, non-toxic a ppearance. [] HENT: Normocephalic, atraumatic, bilateral external ears normal, oropharynx moist, no oral exudates, nose normal. [] Eyes: PERRLA, EOMI, conjunctiva normal, no discharge. [] Neck: Normal range of motion, no tenderness, supple, no stridor. [] Cardiovascular:Heart rate regular rhythm, no murmur [] Lungs & Thorax: Bilateral breath sounds clear to auscultation [] Abdomen: Bowel sounds normal, soft, no tenderness, no masses, no pulsatile masses. [] Skin: Warm, dry, no erythema, no rash. [] Back: No tenderness, no CVA tenderness. [] Extremities: No tenderness, no cyanosis, no clubbing, ROM intact, no edema. [] Neurologic: Alert and oriented X 3, normal motor function, normal sensory function, no focal deficits noted. [] Psychologic: Affect normal, judgement normal, mood normal. [] Current Patient Data: Vital Signs: Vital Signs Date Time Temp Pulse Resp B/P (MAP) Pulse Ox O2 Delivery O2 Flow Rate FiO2 08/01/21 07:48 97.7 68 36 161/83 (109) 98 Room Air 97.7 EKG: EKG: EKG was done at 7:58 a.m., heart rate of 69 bpm, sinus rhythm, no ST segment elevation. Radiology/Procedures: Radiology/Procedures: [address] [place] [address] IMAGING REPORT Signed PATIENT: DAWNA FISCHER ACCOUNT: [id number] : 1955 LOCATION: ER AGE: 66 SEX: M EXAM STATUS: PRE ER ORD. PHYSICIAN: BOUCHRA ROD DO REASON: CHEST PAIN PROCEDURE: PORTABLE CHEST 1V AP portable chest radiograph 08/01/2021 Clinical History: Chest pain. An AP erect portable digital radiograph of the chest was obtained. Comparison study is dated 07/09/2017. The cardiac silhouette is normal in size. Atherosclerotic calcification of the thoracic aorta is seen. The thoracic aorta is mildly tortuous. Small calcified granuloma seen involving the right lower lobe. No acute pulmonary infiltrate is seen. No pleural effusion or pneumothorax is noted. Degenerative changes are seen involving the thoracic spine and both shoulders. Impression: No acute abnormality is seen. Electronically signed by: Leighton Connolly MD (08/01/2021 8:11 AM) [id number] DICTATED and SIGNED BY: LEIGHTON CONNOLLY MD DATE: 08/01/21 [id number] Course & Med Decision Making: Course & Med Decision Making Pertinent Labs and Imaging studies reviewed. (See chart for details) [] Dragon Disclaimer: Dragon Disclaimer: This electronic medical record was generated, in whole or in part, using a voice recognition dictation system. Departure Departure Impression: Primary Impression: Chest pain Disposition: ADMITTED INPATIENT Admitting Physician: MIGUELITO (Dr. POMPA) Condition: IMPROVED Referrals: LAUREN RAM MD (PCP) BOUCHRA ROD DO Aug 01, 2021 08:13
[2021-08-01] MEDS ORDERED: LIDO:MAALOX 1:1 20 ML SINGLE DOSE. SWSW ONE (08:15)
[2021-08-01] MEDS ORDERED: FAMOTIDINE 20 MG/2 ML VIAL IVP ONE (08:15)
--- NOTE | 2021-08-01 08:19 | EKG ---
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
[2021-08-01 08:25] LABS: CALCIUM 9.1 mg/dL (8.5-10.1); CREATININE 1.5 mg/dL (0.7-1.3); POTASSIUM 4.6 mmol/L (3.5-5.1)
[2021-08-01 08:30] LABS: ALBUMIN 3.9 g/dL (3.4-5.0); ALBUMIN/GLOBULIN RATIO 0.9 (1.0-1.7); MAGNESIUM 2.4 mg/dL (1.8-2.4); TOTAL BILIRUBIN 0.2 mg/dL (0.2-1.0); TOTAL PROTEIN 8.4 g/dL (6.4-8.2)
--- NOTE | 2021-08-01 08:31 | EKG ---
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
[2021-08-01] MEDS ORDERED: ONDANSETRON PF 4 MG/2 ML VIAL. IVP PRN (09:30)
[2021-08-01] MEDS ORDERED: NITROGLYCERIN SUBLINGUAL 0.4 MG BOTTLE OF 25. SL PRN (09:30)
[2021-08-01] MEDS ORDERED: ASPIRIN CHEWABLE 81 MG TABLET. PO ONE (10:00)
--- NOTE | 2021-08-01 10:30 | HP ---
DATE OF SERVICE: 08/01/2021 ADMIT DATE: 08/01/2021 CHIEF COMPLAINT: Chest pain. HISTORY OF PRESENT ILLNESS: The patient is a pleasant 66-year-old who has vasculopathy. He has a stent in both legs and 1 in his heart. He just finally quit smoking within the past couple of weeks, basically presented with chest pain. I discussed the case with ER physician. We are going to admit the patient and consult Cardiology. It should be noted that the patient states he was scheduled to see Dr. Vieira this week and they were considering doing a stress test. PAST MEDICAL HISTORY: CAD, tobacco abuse, stents in his heart, stents in his legs, arm fracture. ALLERGIES: None. FAMILY HISTORY: Coronary artery disease. SOCIAL HISTORY: He states he quit smoking a couple of weeks ago. No drink or drugs. MEDICATIONS: Reviewed, please refer to the MRAD. REVIEW OF SYSTEMS: GENERAL: No history of weight change, weakness or fevers. SKIN: No bruising, hair changes or rashes. EYES: No blurred, double or loss of vision. NOSE AND THROAT: No history of nosebleeds, hoarseness or sore throat. HEART: No history of palpitations, chest pain or shortness of breath on exertion. LUNGS: Denies cough, hemoptysis, wheezing or shortness of breath. GASTROINTESTINAL: Denies changes in appetite, nausea, vomiting, diarrhea or constipation. GENITOURINARY: No history of frequency, urgency, hesitancy or nocturia. NEUROLOGIC: Denies history of numbness, tingling, tremor or weakness. PSYCHIATRIC: No history of panic, anxiety or depression. ENDOCRINE: No history of heat or cold intolerance, polyuria or polydipsia. EXTREMITIES: Denies muscle weakness, joint pain, pain on walking or stiffness. PHYSICAL EXAMINATION: VITALS: Within normal limits and are stable. GENERAL: No apparent distress. Alert and oriented. HEENT: Normal cephalic atraumatic, external auditory canals are patent EYES: Extraocular muscles are intact, pupils are equally round and reactive to light and accommodation MUSCULOSKELETAL: Well developed, well nourished, good range of motion ENDOCRINE: No thyromegaly was palpated LYMPHATICS: No cervical chain or axillary nodes were noted HEMATOPOIETIC: No bruising NECK: Supple, no JVD, no thyromegaly was noted. LUNGS: Clear to auscultation in all lung perera without rhonchi or wheezing. HEART: RRR, S1, S2 present. Peripheral pulses intact, no obvious murmurs were noted. ABDOMEN: Soft, nontender. Positive bowel sounds no organomegaly, normal bowel sounds. EXTREMITIES: Without any cyanosis, clubbing, or edema. Pedal pulses intact, Homans sign is negative. NEUROLOGIC: Normal speech, normal tone. A and O x 3, moves all extremities, no obvious focal deficits. PSYCHIATRIC: Normal affect, normal mood. Stable. SKIN: No ulcerations or rashes, good skin turgor, no jaundice. VASCULAR: Good capillary refill, neurovascular bundle appears to be intact. LABORATORY DATA: Hematology is normal. Electrolytes are normal. Troponin is 12. ASSESSMENT AND PLAN: Chest pain with known coronary artery disease. The patient has been admitted. We will check serial enzymes, serial EKGs. Consult Cardiology. Home meds. Deep venous thrombosis prophylaxis. Full code. Cardiac monitoring. Daily aspirin. P.r.n. nitro. P.r.n. morphine. GARY/TRAVIS DR: Bk TID: [id number]
[2021-08-01] MEDS ORDERED: PANTOPRAZOLE 40 MG TABLET.DR. PO ONE (12:30)
[2021-08-01 12:33] LABS: CHOLESTEROL/HDL RATIO 3.8
--- NOTE | 2021-08-01 12:33 | PDOC2 ---
RONALDO JAMES DINKEY ENGINE OPERATOR 08/01/21 1233: CARDIAC CONSULT DATE OF CONSULT Date of Consult DATE: 08/01/21 TIME: 12:05 REASON FOR CONSULT Reason for Consult: Chest pain REFERRING PHYSICIAN Referring Physician: Ricco SOURCE Source: Chart review, Patient HISTORY OF PRESENT ILLNESS HISTORY OF PRESENT ILLNESS This is a pleasant 66 yo male admitted for complains of chest pain. Described it as burning midchest, however he has been having HAN and his tolerance with distances have been getting shorter described more SOA than usual with exertion at less than 100 ft distance. No nausea or vomiting. He is compliant with his medications and he no longer smoke tobacco. No recent falls or injury and no viral respiratory symptoms. No fever or chills and he is not vaccinated for covid-19. No palpitations but he does have intermittent episodes of diaphoresis at night. PAST MEDICAL HISTORY Cardiovascular: AFIB, CAD, HTN, Other (PAD) GI: GERD Musculoskeletal: Osteoarthritis PAST SURGICAL HISTORY Past Surgical History: Tonsillectomy, Other (ORIF left shoulder, PCI remotely, bilateral iliac stenting) FAMILY HISTORY Family History: Heart Disease (mother) SOCIAL HISTORY Smoke: Quit ALCOHOL: none Drugs: None Lives: with Family CURRENT MEDICATIONS CURRENT MEDICATIONS Current Medications Medications (Trade) Dose Ordered Sig/Manav Route PRN Reason Start Time Stop Time Status Last Admin Dose Admin Famotidine (Pepcid Vial) 20 mg 1X ONCE IVP 08/01/21 08:15 08/01/21 08:16 DC 08/01/21 08:15 Multi-Ingredient Mouthwash/Gargle (Gi Cocktail) 20 ml 1X ONCE SWSW 08/01/21 08:15 08/01/21 08:16 DC 08/01/21 08:15 Aspirin (Aspirin Chewable) 324 mg 1X ONCE PO 08/01/21 10:00 08/01/21 10:01 DC 08/01/21 09:51 ALLERGIES ALLERGIES: Coded Allergies: I S O L A T I O N *CONTACT* (Verified Allergy, Unknown, 08/01/21) mrsa + No Known Medication Allergies (Verified Allergy, Unknown, 08/01/21) ROS Review of System 14 point ROS evaluated with pertinent positives noted per HPI PHYSICAL EXAM General: Alert, Oriented X3, Cooperative, No acute distress HEENT: Atraumatic, Mucous membr. moist/pink Lungs: Clear to auscultation, Other (diminished bases) Heart: Regular rate (SR), Normal S1, Normal S2, No murmurs Abdomen: Soft, No tenderness Extremities: No cyanosis, Other (trace LE edema) Neuro: Normal speech, Sensation intact Psych/Mental Status: Mental status NL, Mood NL MUSCULOSKELETAL: Osteoarthritic changes both hands VITALS/I&O VITALS/I&O: Vital Signs Date Time Temp Pulse Resp B/P (MAP) Pulse Ox O2 Delivery O2 Flow Rate FiO2 08/01/21 10:43 66 14 175/81 (112) 97 Room Air 08/01/21 07:48 97.7 97.7 LABS Lab: Laboratory Tests Test 08/01/21 08:00 08/01/21 10:20 White Blood Count 8.7 x10^3/uL (4.0-11.0) Red Blood Count 4.52 x10^6/uL (4.30-5.70) Hemoglobin 15.2 g/dL (13.0-17.5) Hematocrit 44.6 % (39.0-53.0) Mean Corpuscular Volume 99 fL (79-100) Mean Corpuscular Hemoglobin 34 pg (25-35) Mean Corpuscular Hemoglobin Concent 34 g/dL (31-37) Red Cell Distribution Width 12.8 % (11.5-14.5) Platelet Count 257 x10^3/uL (140-400) Neutrophils (%) (Auto) 49 % (31-73) Lymphocytes (%) (Auto) 32 % (24-48) Monocytes (%) (Auto) 10 % (0-9) H Eosinophils (%) (Auto) 7 % (0-3) H Basophils (%) (Auto) 2 % (0-3) Neutrophils # (Auto) 4.3 x10^3/uL (1.8-7.7) Lymphocytes # (Auto) 2.8 x10^3/uL (1.0-4.8) Monocytes # (Auto) 0.9 x10^3/uL (0.0-1.1) Eosinophils # (Auto) 0.6 x10^3/uL (0.0-0.7) Basophils # (Auto) 0.2 x10^3/uL (0.0-0.2) Sodium Level 139 mmol/L (136-145) Potassium Level 4.6 mmol/L (3.5-5.1) Chloride Level 103 mmol/L (98-107) Carbon Dioxide Level 28 mmol/L (21-32) Anion Gap 8 (6-14) Blood Urea Nitrogen 29 mg/dL (8-26) H Creatinine 1.5 mg/dL (0.7-1.3) H Estimated GFR (Cockcroft-Gault) 47.0 BUN/Creatinine Ratio 19 (6-20) Glucose Level 112 mg/dL (70-99) H Calcium Level 9.1 mg/dL (8.5-10.1) Magnesium Level 2.4 mg/dL (1.8-2.4) Total Bilirubin 0.2 mg/dL (0.2-1.0) Aspartate Amino Transferase (AST) 16 U/L (15-37) Alanine Aminotransferase (ALT) 29 U/L (16-63) Alkaline Phosphatase 57 U/L (46-116) Troponin I High Sensitivity 12 ng/L (4-75) 55 ng/L (4-75) SI-Rjm-D-Type Natriuretic Peptide 202 pg/mL (0-124) H Total Protein 8.4 g/dL (6.4-8.2) H Albumin 3.9 g/dL (3.4-5.0) Albumin/Globulin Ratio 0.9 (1.0-1.7) L Lipase 104 U/L (73-393) Laboratory Tests 08/01/21 08:00 Laboratory Tests 08/01/21 08:00 ASSESSMENT/PLAN ASSESSMENT/PLAN 1. Chest pain: UA features 2. GERD 3. CAD: past PCI 4. HTN: labile 5. HLP 6. PAFIB: on amiodarone. SR 7. Suspect CKD3 8. Bilateral LE PAD: clinically stable Recommendations 1. LHC with possible PCI, risks and benefits discussed and agreeable to proceed for tomorrow. 2. Start IVF tonight 3. Resume home BP regimen. ASA/plavix. Continue amiodarone 4. TSH and FLP 5. DC home diclofenac REENA LÓPEZ MD 08/01/21 [id number]: CARDIAC CONSULT ASSESSMENT/PLAN ASSESSMENT/PLAN Patient seen and examined. Agree with RESIDENCE SUPERVISOR's assessment and plan. Clinical picture consistent with unstable angina. Agree with cardiac catheterization and possible angioplasty. Risks and benefits were explained and he is agreeable. PAF maintaining sinus rhythm. Continue amiodarone for rhythm maintenance. Thank you for your consultation. RONALDO JAMES APRN Aug 01, 2021 12:33 REENA LÓPEZ MD Aug 01, 2021 15:48
[2021-08-01 12:52] VITALS: BP 156/73
[2021-08-01] MEDS ORDERED: SIMV80TA17 PO (14:19)
[2021-08-01] MEDS ORDERED: RIVA10TA PO (14:19)
[2021-08-01 15:00] VITALS: BP 144/69
[2021-08-01 19:00] VITALS: BP 171/77
[2021-08-01] MEDS: METOPROLOL TART IMMED RELEASE 50 MG TABLET. PO SCH (20:32)
[2021-08-01] MEDS ORDERED: ATORVASTATIN CALCIUM 40 MG TABLET. PO SCH (21:00)
[2021-08-01] MEDS ORDERED: IV NORMAL SALINE 1000ML BAG 1,000 ML IV ONE (23:00)
[2021-08-01 23:05] VITALS: BP 156/72
[2021-08-02 03:23] VITALS: BP 151/66
[2021-08-02 06:19] VITALS: BP 174/85
[2021-08-02] MEDS ORDERED: PANTOPRAZOLE 40 MG TABLET.DR. PO SCH (07:30)
[2021-08-02] MEDS ORDERED: IODIXANOL 320 MG/ML 100 ML VIAL. ONE (07:42)
[2021-08-02] MEDS ORDERED: LIDOCAINE 1% PF 2 ML VIAL. ONE (07:42)
[2021-08-02 07:50] LABS: PROTHROMBIN TIME PATIENT 12.7 SEC (11.7-14.0)
[2021-08-02 07:54] LABS: CALCIUM 8.7 mg/dL (8.5-10.1); CREATININE 1.3 mg/dL (0.7-1.3); GFR 55.4; POTASSIUM 4.5 mmol/L (3.5-5.1)
[2021-08-02] MEDS: METOPROLOL TART IMMED RELEASE 50 MG TABLET. PO SCH (08:08)
[2021-08-02] MEDS ORDERED: ASPIRIN ENTERIC COATED 81 MG TABLET.DR. PO SCH (09:00)
[2021-08-02] MEDS ORDERED: AMIODARONE HCL 200 MG TABLET. PO SCH (09:00)
[2021-08-02] MEDS ORDERED: CLOPIDOGREL BISULFATE 75 MG TABLET PO SCH (09:00)
--- NOTE | 2021-08-02 10:45 | PDOC ---
[employer] PROGRESS NOTE Date of Service DOS: DATE: 08/02/21 TIME: 10:44 Chief Complaint Chief Complaint Chest pain with previous known coronary disease History of past PCI Hypertension Hyperlipidemia A. fib on amiodarone CKD Peripheral vascular disease Lower extremity stents bilateral History of arm fracture History of Present Illness History of Present Illness 08/02/2021 Patient seen and examined Discussed with RN Chart reviewed He is going for cardiac cath today Vitals/I&O Vitals/I&O: Vital Signs Date Time Temp Pulse Resp B/P (MAP) Pulse Ox O2 Delivery O2 Flow Rate FiO2 08/02/21 08:08 59 174/85 08/02/21 06:19 97.7 18 97 Room Air 97.7 I & O 08/01/21 08/01/21 08/02/21 15:00 23:00 07:00 Intake Total 660 ml 0 ml Balance 660 ml 0 ml Physical Exam General: Alert, Oriented X3, Cooperative, No acute distress Heart: Regular rate (SR), Normal S1, Normal S2, No murmurs Abdomen: Soft, No tenderness Extremities: No cyanosis, Other (trace LE edema) Labs Labs: Laboratory Tests Test 08/01/21 13:25 08/01/21 13:55 08/02/21 07:20 Troponin I High Sensitivity 167 ng/L (4-75) Coronavirus (COVID-19)(PCR) Not detected (NOT DETECTD) SARS-CoV-2 Antigen (Rapid) Negative (NEGATIVE) Prothrombin Time 12.7 SEC (11.7-14.0) Prothromb Time International Ratio 1.0 (0.8-1.1) Sodium Level 139 mmol/L (136-145) Potassium Level 4.5 mmol/L (3.5-5.1) Chloride Level 105 mmol/L (98-107) Carbon Dioxide Level 28 mmol/L (21-32) Anion Gap 6 (6-14) Blood Urea Nitrogen 22 mg/dL (8-26) Creatinine 1.3 mg/dL (0.7-1.3) Estimated GFR (Cockcroft-Gault) 55.4 Glucose Level 108 mg/dL (70-99) Calcium Level 8.7 mg/dL (8.5-10.1) Assessment and Plan Assessmemt and Plan Problems Medical Problems: (1) Chest pain Status: Acute Chest pain with previous known coronary disease History of past PCI Hypertension Hyperlipidemia A. fib on amiodarone CKD Peripheral vascular disease Lower extremity stents bilateral History of arm fracture Plan He is going for cardiac cath today For now continue cardiac monitoring Serial enzymes Serial EKGs Home meds DVT prophylaxis Full code IV fluid Trend other labs Await cath report Appreciate cardiology input Comment Review of Relevant I have reviewed the following items sylvia (where applicable) has been applied. Medications: Current Medications Medications (Trade) Dose Ordered Sig/Manav Route PRN Reason Start Time Stop Time Status Last Admin Dose Admin Aspirin (Ecotrin) 81 mg DAILY PO 08/02/21 09:00 08/02/21 08:08 Clopidogrel Bisulfate (Plavix) 75 mg DAILY PO 08/02/21 09:00 08/02/21 08:08 Metoprolol Tartrate (Lopressor) 50 mg BID PO 08/01/21 21:00 08/02/21 08:08 Atorvastatin Calcium (Lipitor) 40 mg QHS PO 08/01/21 21:00 08/01/21 20:31 Pantoprazole Sodium (Protonix) 40 mg 1X ONCE PO 08/01/21 12:30 08/01/21 12:52 DC 08/01/21 13:18 Sodium Chloride 1,000 ml @ 75 mls/hr 1X ONCE IV 08/01/21 23:00 08/02/21 12:19 08/01/21 13:18 Enoxaparin Sodium (Lovenox 100mg Syringe) 90 mg 1X ONCE SQ 08/01/21 14:30 08/01/21 14:31 DC 08/01/21 15:03 Justifications for Admission Other Justification KAT POMPA III DO Aug 02, 2021 10:45
[2021-08-02 11:00] VITALS: BP 157/65
[2021-08-02] MEDS ORDERED: HEPARIN for IV BOLUS 10,000 UNIT/10 ML VIAL. ONE (11:26)
[2021-08-02] MEDS ORDERED: VERAPAMIL 5 MG/2 ML VIAL. ONE (11:26)
[2021-08-02] MEDS ORDERED: MIDAZOLAM HCL/PF 2 MG/2 ML VIAL. ONE (11:26)
[2021-08-02] MEDS ORDERED: fentaNYL PF VIAL 100 MCG/2 ML VIAL ONE (11:26)
[2021-08-02] MEDS ORDERED: NITROGLYCERIN 200 MCG/2 ML SYRINGE FOR CATH/VASC LAB. ONE (11:27)
[2021-08-02] MEDS ORDERED: MIDAZOLAM HCL/PF 2 MG/2 ML VIAL. IV ONE (12:00)
[2021-08-02] MEDS ORDERED: VERAPAMIL 5 MG/2 ML VIAL. IART ONE (12:00)
[2021-08-02] MEDS ORDERED: IODIXANOL 320 MG/ML 100 ML VIAL. IART ONE (12:00)
[2021-08-02] MEDS ORDERED: fentaNYL PF VIAL 100 MCG/2 ML VIAL IV ONE (12:00)
[2021-08-02] MEDS ORDERED: HEPARIN for IV BOLUS 10,000 UNIT/10 ML VIAL. IART ONE (12:00)
[2021-08-02] MEDS ORDERED: NITROGLYCERIN 200 MCG/2 ML SYRINGE FOR CATH/VASC LAB. IART ONE (12:00)
[2021-08-02] MEDS ORDERED: LIDOCAINE 1% PF 2 ML VIAL. INJ ONE (12:00)
[2021-08-02] MEDS ORDERED: ADENOSINE 90 MG/30 ML VIAL. IV ONE (12:06)
[2021-08-02] MEDS ORDERED: ADENOSINE 90 MG in IV NORMAL SALINE 50ML 90 ML IV ONE (12:15)
[2021-08-02 12:29] VITALS: BP 162/80
--- NOTE | 2021-08-02 13:28 | CARD ---
MR#: [id number] Date of Study: 08/02/2021 Ordering Physician: RONALDO JAMES, Referring Physician: RONALDO JAMES, Tech: RT Kj(R) APPROVED REPORT Technologist: RT Kj(R) Nurse: lGoria Brooks RN Procedure(s) performed: 1. Left heart catheterization, selective coronary angiography via right christian sradial approach 2. Instantaneous wave free ratio (IFR) and fractional flow reserve (FFR) measurement to left anterio r descending artery stenosis FL TIME: 6.8 MIN DOSE: 51 GYCM2 CONTRAST: 100 ML MODERATE SEDATION: 44 MINUTES INDICATION The indication(s) include : unstable angina . [facility] Clinical Frailty Scale [facility] Clinical Frailty Scale: Mildly Frail Heart Failure Heart Failure: Yes If Yes, Newly Diagnosed: No If Yes, HF Type: Diastolic If Yes, NYHA Class: Class II CASE TECHNIQUE IV conscious sedation was used throughout procedure with appropriate monitoring and was performed in the presence of a registered nurse who was an independent trained observer other than the physician p erforming the procedure. During this case, Fluoroscopy and low osmolar contrast were used for imaging . Specimen(s) Removed: No Estimated Blood loss: 15 cc's. PROCEDURE NARRATIVE After explaining the risks, benefits and alternative options, informed consent was obtained from mal[place] ent. Patient was brought to the cardiac Statistical Reporting Analyst and right wrist was prepped and draped in the usual fashion after confirming a positive modified Eliezer's test. Arterial access was obtained in the [facility] radial artery and a 6 Iraqi sheath was inserted. 6 Iraqi Finesse and 6 Iraqi JL 3.5 catheters we re used to perform selective angiography of the right and left coronary arteries. LVEDP and transaor tic gradients were measured. Since patient was found to have angiographically borderline significant in-stent stenosis involving l eft anterior descending artery, a decision was made to assess physiologic significance using instanta neous wave free ratio (IFR). The left main coronary artery was engaged with a 6 Iraqi XB 3.5 guide catheter and the stenosis in the left anterior descending artery was crossed with a [place] pressure wire. iFR measurement was made the came back ranging from 0.85 to 0.91. Hence we decided to evaluat e this further using fractional flow reserve (FFR) measurement. Patient was given intravenous adenos ine infusion per protocol and FFR measurement was made that came back significant at 0.78. Patient t olerated the procedure well. Hemostasis was achieved using TR band. There were no immediate complic ations. The following findings were noted. FINDINGS 1. Hemodynamics: Left ventricular end-diastolic pressure of 14 mmHg. No pullback gradient across th e aortic valve. 2. Coronary angiography: a. The left main coronary artery arose from the left sinus of Valsalva, gave rise to the left anteri or descending and left circumflex arteries and did not show any significant stenosis. b. The left anterior descending artery showed 70% in-stent restenosis involving the proximal to mid segment. This was physiologically significant based on FFR measurement of 0.78. c. The left circumflex artery showed 70% stenosis involving the proximal segment. d. The right coronary artery was a large and dominant vessel arising from the right sinus of Valsalv a that showed widely patent previously placed stent in the mid segment, 20% stenosis just distal to t he stent and a critical 90% stenosis in the distal segment. Conclusion Severe three-vessel coronary artery disease Recommendations Cardiothoracic surgery consultation for possible coronary artery bypass surgery Signed by : Rodney Vieira, Electronically Approved : 08/02/2021 13:28:21
[2021-08-02] MEDS ORDERED: IV 1/2 NORMAL SALINE 1,000 ML IV SCH (13:30)
--- NOTE | 2021-08-02 14:18 | NUR ---
SS following for discharge planning. SS reviewed pt chart and discussed with pt RN. Pt is from home and is currently on room air. COVID19 negative. Cardiology following. Pt had heart cath today. Discharge plan is currently to home when medically ready for discharge. SS will continue to follow for discharge planning.
[2021-08-02 15:00] VITALS: BP 155/78
[2021-08-02 19:00] VITALS: BP 172/86
== END 2021-08-02 21:01 | disposition home or self-care (01) | DRG 286 ==
LOC: ER 07:45 → OBSVTOIN 09:27 → 2 NORTH 09:27 → 6 SOUTH 08-02 06:35
PROVIDERS: ADMIT Internal Medicine; ATTEND Internal Medicine
PROC: 4A023N7 Measurement of Cardiac Sampling and Pressure, Left Heart, Percutaneous Approach (ICD-10-PCS; principal; 2021-08-02)
PROC: B2111ZZ Fluoroscopy of Multiple Coronary Arteries using Low Osmolar Contrast (ICD-10-PCS; 2021-08-02)
PROC: 4A033BC Measurement of Arterial Pressure, Coronary, Percutaneous Approach (ICD-10-PCS; 2021-08-02)
DX: T82.855A Stenosis of coronary artery stent, initial encounter (principal); I50.33 Acute on chronic diastolic (congestive) heart failure; I25.110 Atherosclerotic heart disease of native coronary artery with unstable angina pectoris; E78.5 Hyperlipidemia, unspecified; I12.9 Hypertensive chronic kidney disease with stage 1 through stage 4 chronic kidney disease, or unspecified chronic kidney disease; I48.0 Paroxysmal atrial fibrillation; I70.0 Atherosclerosis of aorta; I73.9 Peripheral vascular disease, unspecified; K21.9 Gastro-esophageal reflux disease without esophagitis; N18.9 Chronic kidney disease, unspecified; Z82.49 Family history of ischemic heart disease and other diseases of the circulatory system; Z87.891 Personal history of nicotine dependence; Z95.5 Presence of coronary angioplasty implant and graft; M19.90 Unspecified osteoarthritis, unspecified site; Z20.822 Contact with and (suspected) exposure to COVID-19
CPT/HCPCS: 36415; 71045; 80048; 80053; 80061; 83690; 83735; 83880; 84484; 85025; 85610; 87426; 93005; 93458; 93571; 96374; 99152; 99153; C1769; C1894; J0153; J1644; J1650; J2250; J3010; J3490; J7030; Q9967; U0003; 99285-25; G0378

== ENCOUNTER → 2021-08-21 | Outpatient (CLI) | payer MEDICARE, MEDICAID ==
[2021-08-02 19:00] VITALS: BP 172/86
[~2021-08-21] MED LIST changes: +RIVA10TA PO; +SIMV80TA17 PO
--- NOTE | 2021-08-21 16:39 | CARD ---
MR#: [id number] Date of Study: 08/21/2021 Ordering Physician: REENA LÓPEZ, Referring Physician: REENA LÓPEZ Tech: Zoila Ch ANGELINE APPROVED REPORT EXAM: Two-dimensional and M-mode echocardiogram with Doppler and color Doppler. Other Information Quality : GoodHR: 63bpm Rhythm : NSRTechnically limited study due to body habitus. INDICATION Cardiac Disease: CAD RISK FACTORS Hypertension Obesity Hyperlipidemia 2D DIMENSIONS RVDd2.9 (2.9-3.5cm)Left Atrium(2D)3.8 (1.6-4.0cm) IVSd1.0 (0.7-1.1cm)Aortic Root(2D)3.6 (2.0-3.7cm) LVDd5.4 (3.9-5.9cm)LVOT Diameter2.3 (1.8-2.4cm) PWd0.8 (0.7-1.1cm)LVDs5.2 (2.5-4.0cm) FS (%) 4.3 %SV13.8 ml LVEF(%)9.7 (>50%) Aortic Valve AoV Peak Javed.143.3cm/sAoV VTI33.7cm AO Peak GR.8.2mmHgLVOT Peak Javed.70.4cm/s AO Mean GR.4mmHgAVA (VMAX)2.07cm2 Pulmonary Valve PV Peak Dphoczje26.7cm/s LEFT VENTRICLE The left ventricle is normal size. There is normal left ventricular wall thickness. The left ventricu lar systolic function is mildly abnormal. EF 40-45% Basal to mid inferior wall is akinetic. Otherwise , there is mild global hypokinesis. Transmitral Doppler flow pattern is Grade I-abnormal relaxation p attern. RIGHT VENTRICLE The right ventricle is normal size. There is normal right ventricular wall thickness. The right ventr icular systolic function is normal. ATRIA The left atrium size is normal. The right atrium size is normal. The interatrial septum is intact wit h no evidence for an atrial septal defect or patent foramen ovale as noted on 2-D or Doppler imaging. AORTIC VALVE The aortic valve is sclerotic and grossly normal in appearance. Doppler and Color Flow revealed no si gnificant aortic regurgitation. There is no significant aortic valvular stenosis. MITRAL VALVE The mitral valve is normal in structure and function. There is no evidence of mitral valve prolapse. There is no mitral valve stenosis. Doppler and Color-flow revealed mild mitral regurgitation. TRICUSPID VALVE The tricuspid valve is normal in structure and function. Doppler and Color Flow revealed no tricuspid valve regurgitation noted. There is no tricuspid valve stenosis. PULMONIC VALVE Doppler and Color Flow revealed trace pulmonic valvular regurgitation. There is no pulmonic valvular stenosis. GREAT VESSELS The aortic root is upper limits of normal in size. The IVC is normal in size and collapses >50% with inspiration. PERICARDIAL EFFUSION There is no evidence of significant pericardial effusion. Critical Notification Critical Value: No <Conclusion> The left ventricular systolic function is mildly abnormal. EF 40-45% Basal to mid inferior wall is akinetic. Otherwise, there is mild global hypokinesis. Signed by : Eusebio Zafar, Electronically Approved : 08/21/2021 16:39:01
== END ==
LOC: ECHO 10:48
PROVIDERS: ATTEND Internal Medicine Cardiovascular Disease
DX: Z01.810 Encounter for preprocedural cardiovascular examination (principal); I34.0 Nonrheumatic mitral (valve) insufficiency; I25.10 Atherosclerotic heart disease of native coronary artery without angina pectoris
CPT/HCPCS: 93306; C8929